=== PATIENT | male | born 2000 | race African-American/Black ===

== ENCOUNTER 2022-10-14 00:32 | Emergency (ER) | payer SELFPAY ==
--- NOTE | ~2022-10-14 | XR_ITS ---
EXAMINATION: XR FOREARM, LEFT CLINICAL INFORMATION: Pain COMPARISON: None available. TECHNIQUE: AP and lateral views of the left forearm were obtained. FINDINGS: The bones and soft tissues are normal. No fracture. Imaged portions of the elbow and wrist are unremarkable. XR/XR forearm LT 2V IMPRESSION: Normal left forearm.
[2022-10-14 00:41] VITALS: BP 138/62; PULSE 104; O2SAT 98
[2022-10-14 00:49] VITALS: BP 132/79; BP 138/78; PULSE 78; PULSE 98; RESP 18; O2SAT 100; O2SAT 98; BMI 33.9
[2022-10-14] MEDS: Ibuprofen 400 MG TABLET PO (01:48)
[2022-10-14] MEDS: Acetaminophen 325 MG TABLET 975 MG PO (01:48)
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
== END 2022-10-14 03:47 | disposition home or self-care (01) ==
PROVIDERS: Emergency Provider Emergency Medicine Emergency Medical Services
DX: S50.12XA Contusion of left forearm, initial encounter (principal); V43.52XA Car driver injured in collision with other type car in traffic accident, initial encounter; W22.11XA Striking against or struck by driver side automobile airbag, initial encounter; Y93.89 Activity, other specified; Y92.414 Local residential or business street as the place of occurrence of the external cause; Y99.9 Unspecified external cause status
CPT/HCPCS: 73090; 99283